=== PATIENT | female | born 1985 | race Caucasian/White ===

== ENCOUNTER 2023-12-30 19:59 | Emergency (ER) | payer BC, SELFPAY ==
[2023-12-30 20:10] VITALS: BP 94/64
[2023-12-30] MEDS: NSS 1000 IV (23:09)
[2023-12-30] MEDS: TORADOL 15 MG IV (23:15)
[2023-12-30 23:17] LABS: % Basophils 0.2 % (0-2); % Eosinophils 0.3 % (0-6); % Immature Granulocytes 0.7 % (0-0.5); % Lymphocytes 11.2 % (20.5-51.1); % Monocytes 8.5 % (1.7-9.3); % Neutrophils 79.1 % (42.2-75.2); Absolute Immature Granulocytes 0.1 10^3/uL (0-0.05); Absolute Lymphocytes 1.1 10^3/uL (1.2-3.4); Absolute Monocytes 0.9 10^3/uL (0.1-0.6); Hematocrit 32.9 % (37.0-47.0); Hemoglobin 11.7 g/dL (12.0-16.0); Mean Corp Hgb Conc. 35.6 g/dL (33.0-37.0); Mean Corpuscular Hgb 28.2 pg (27.0-31.0); Mean Corpuscular Volume 79.3 fL (81.0-99.0); Mean Platelet Volume 10.6 fL (7.4-10.4); Nucleated Red Blood Cells % 0 %; Platelet Count 230 10^3/uL (130-400); Red Blood Cell Count 4.15 10^6/uL (4.20-5.40); Red Cell Dist. Width 13.4 % (11.5-14.5); White Blood Cell Count 10.1 10^3/uL (4.8-10.8)
[2023-12-30 23:35] VITALS: BMI 25.5
[2023-12-30 23:39] LABS: Blood Urea Nitrogen 19 mg/dl (7-17); Carbon Dioxide 24 mmol/L (22-30); Chloride 104 mmol/L (98-107); Estimated Creatinine Clearance 49 ml/min; Glucose 93 mg/dl (70-99); Potassium 3.7 mmol/L (3.5-5.1); Sodium 134 mmol/L (135-145); eGFR 54.65
--- NOTE | 2023-12-31 00:10 | ED.GENMED ---
History of Present Illness
General
Chief Complaint: Skin Problem
Source: patient
Exam Limitations: none
Time Seen by Provider: 12/30/23 22:25
Nursing documentation reviewed up to this point in time: agreed with
Travel History
Have you had any contact with someone who has COVID-19?: No
Do you have any symptoms of coronavirus? Fever > 100 degrees, chills, cough, shortness of breath, sore throat, loss of taste or smell, muscle aches, or headache?: Yes
Symptoms:: chills
History of Present Illness
History of Present Illness:
Patient evaluated at urgent care center yesterday and was started on Bactrim and Keflex, secondary to concern for potential cellulitis in her left armpit, presents to ED secondary to worsening redness and pain, despite taking antibiotics, along with
decreased appetite. Denies nausea or vomiting. Denies trauma. Denies headache. Patient reports feeling feverish yesterday, which now has resolved. Patient has had history of previous skin infection.
Past History
Past History
ED Past Medical History: Hypothyroidism
ED Past Surgical History: Appendectomy
Social History
Tobacco: Smoker
Personal: Single
Living: with family
Employment: Employed
Review of Systems
Review of Systems
Allergies reviewed?: Yes
All Other Systems: ROS reviewed and negative except as documented in HPI and ROS
Constitutional: Reports no symptoms; Denies chills
ABD/GI: Reports no symptoms
Musculoskeletal: Reports no symptoms
Skin: Reports other (Skin redness)
Neurological: Reports no symptoms
Phy Exam
Physical Exam
Physical Exam:
Physical Exam
General: mild distress, not acutely ill. afebrile
Head: nc/at. eomi
Neck: supple. no meningeal signs.
Abdomen: normal bowel sounds. not tender.
Neuro: alert and oriented. no focal neurological deficits
Skin: left axilla - an area of erythema approx 2 cm in diameter noted over left axilla, without open drainage/swelling.
Psychiatric: well kept. interactive and cooperative
Extremities: no edema. no calf tenderness.
Course
Orders/Labs/Results
Orders:
Orders
12/30/23 22:55
Ketorolac [Toradol] 15 mg IV NOW STA
12/30/23 22:56
0.9% Sodium Chloride 1000 ml [Nss] 1,000 ml IV BOLUS
12/30/23 23:09
Basic Metabolic Panel Urgent
Complete Blood Count/With Diff Urgent
Blood Culture Urgent
SATHISH Source: Blood/Venous
Specimen Description:
Abnormal Lab Results
12/30/23
23:09
RBC 4.15 L 10^6/uL
(4.20-5.40)
Hgb 11.7 L g/dL
(12.0-16.0)
Hct 32.9 L %
(37.0-47.0)
MCV 79.3 L fL
(81.0-99.0)
MPV 10.6 H fL
(7.4-10.4)
Abs Immat Gran (auto) 0.1 H 10^3/uL
(0-0.05)
Absolute Neuts (auto) 8.0 H 10^3/uL
(1.4-6.5)
Absolute Lymphs (auto) 1.1 L 10^3/uL
(1.2-3.4)
Absolute Monos (auto) 0.9 H 10^3/uL
(0.1-0.6)
Immature Gran % 0.7 H %
(0-0.5)
Neutrophils % 79.1 H %
(42.2-75.2)
Lymphocytes % 11.2 L %
(20.5-51.1)
Sodium 134 L mmol/L
(135-145)
BUN 19 H mg/dl
(7-17)
Creatinine 1.3 H mg/dL
(0.6-1.0)
12/30/23 23:09
12/30/23 23:09
Vital Signs
Initial and Last Documented VS:
Initial Vital Signs
Temp Pulse Resp BP Pulse Ox
98.4 F 95 17 94/64 98
12/30/23 20:10 12/30/23 20:10 12/30/23 20:10 12/30/23 20:10 12/30/23 20:10
Last Documented Vital Signs
Temp Pulse Resp BP Pulse Ox
98.4 F 84 15 101/62 98
12/30/23 20:10 12/31/23 00:36 12/31/23 00:36 12/31/23 00:36 12/31/23 00:36
MDM/Problems Addressed
MDM/Problems Addressed:
History and exam consistent with folliculitis with development of cellulitis. No evidence of abscess, therefore no indication for incision and drainage at this time. In addition, as antibiotics was only started 24 hours ago, difficult to determine
that patient is failing on antibiotics. Patient is afebrile with a normal blood work. As such, patient will be advised to continue already prescribed antibiotics along with PCP follow-up. Advised to return to ED with worsening symptoms. Pt
expressed understanding at time of discharge.
Mildly elevated creatinine discussed with patient, which is likely prerenal. Advised repeat blood work as outpatient after resolution of current infection
Blood cx pending
*Critical Care Note
Total Time (30-74mins, 75-104mins- exclusive of procedures): Not Applicable
ED Attending Note
-
Portions of this chart may have been created with voice recognition software.� Occasional wrong word or��sound alike� substitutions may have occurred due to the inherent limitations of voice recognition software.
Discharge Plan
Departure
Patient Disposition: Home (Routine Discharge)
Date of Disposition: 12/31/23
Time of Disposition: 00:10
Patient with high blood pressure during this ER visit?: Yes
Condition: Good
Discharge Problem:
Cellulitis
Instructions: Cellulitis (Skin Infection), Adult (DC)
Prescriptions:
No Action
levothyroxine 175 MCG tablet
175 mcg PO DAILY
medroxyprogesterone 150 MG/ML suspension
150 mg IM Q3M
Referrals:
NONE,* [Family Provider] -
Activity Restrictions/Additional Instructions:
As discussed, please follow-up with your primary care physician for reevaluation in 1 to 2 days. Until then, please continue to take already prescribed antibiotics.
Interventions
Interventions:
*Risk Screen - Suicide Last Done: 12/30/23 20:10
*General Assessment Last Done: 12/30/23 20:10
*Neglect/Abuse Screening Last Done: 12/30/23 20:10
ED- Fall Risk Assessment Last Done: 12/30/23 23:35
*ED COVID-19 Vaccine History Last Done: 12/30/23 20:10
*Nursing Disposition Last Done: 12/31/23 00:35
ED-Skin Assessment Last Done: 12/30/23 23:35
Discharge Date and Time
Discharge Date/Time: 12/31/23 00:36
Print Language: SRI LANKAN
[2023-12-31 00:36] VITALS: BP 101/62
== END 2023-12-31 00:36 | disposition home or self-care (01) ==
LOC: EMR 19:59
PROVIDERS: EMERGENCY PHYSICIAN Emergency Medicine
DX: L03.114 Cellulitis of left upper limb (principal); F17.200 Nicotine dependence, unspecified, uncomplicated; R03.0 Elevated blood-pressure reading, without diagnosis of hypertension
CPT/HCPCS: 99284; 96374; 96361; 80048; 85025; 87040

== ENCOUNTER 2025-02-10 10:43 | Emergency (ER) | payer OTHER, SELFPAY ==
[2025-02-10 11:02] VITALS: BP 119/77
[2025-02-10 11:35] LABS: % Basophils 0.8 % (0-2); % Eosinophils 4.2 % (0-6); % Lymphocytes 23.8 % (20.5-51.1); % Monocytes 7.8 % (1.7-9.3); % Neutrophils 63.4 % (42.2-75.2); Absolute Eosinophils 0.2 10^3/uL (0-0.7); Absolute Lymphocytes 0.9 10^3/uL (1.2-3.4); Absolute Monocytes 0.3 10^3/uL (0.1-0.6); Absolute Neutrophils 2.3 10^3/uL (1.4-6.5); Hematocrit 35.9 % (37.0-47.0); Hemoglobin 12.2 g/dL (12.0-16.0); Mean Corpuscular Hgb 28.4 pg (27.0-31.0); Mean Corpuscular Volume 83.7 fL (81.0-99.0); Mean Platelet Volume 9.7 fL (7.4-10.4); Nucleated Red Blood Cells % 0 %; Platelet Count 263 10^3/uL (130-400); Red Blood Cell Count 4.29 10^6/uL (4.20-5.40); Red Cell Dist. Width 14.1 % (11.5-14.5); White Blood Cell Count 3.6 10^3/uL (4.8-10.8)
[2025-02-10 11:40] LABS: HCG, Serum Qualitative Screen Negative
[2025-02-10 11:45] LABS: ALT (SGPT) 18 U/L (0-35); AST (SGOT) 23 U/L (14-36); Albumin 3.8 g/dl (3.5-5.0); Alkaline Phosphatase 57 U/L (38-126); Blood Urea Nitrogen 15 mg/dl (7-17); Calcium 9.1 mg/dl (8.4-10.2); Carbon Dioxide 30 mmol/L (22-30); Chloride 109 mmol/L (98-107); Glucose 91 mg/dl (70-99); Potassium 3.9 mmol/L (3.5-5.1); Sodium 142 mmol/L (135-145); Total Bilirubin 0.4 mg/dl (0.2-1.3); Total Protein 6.4 g/dl (6.3-8.2); eGFR > 60.00
[2025-02-10 11:52] VITALS: BP 115/87
[2025-02-10 11:53] VITALS: BMI 26.1
[2025-02-10 12:00] VITALS: BP 110/72
[2025-02-10 13:00] VITALS: BP 101/81
--- NOTE | 2025-02-10 13:05 | ED.GENMED ---
History of Present Illness
<Tano Harry PA-C - Last Filed: 02/10/25 14:48>
General
Chief Complaint: Fatigue
Time Seen by Provider: 02/10/25 12:46
History of Present Illness
History of Present Illness:
Patient is a 39-year-old female with past medical history of reported rheumatoid arthritis and history of prior Lyme disease, hypothyroidism, here today for evaluation of joint pain that has been occurring intermittently over the past couple of
weeks to months. She reports pain throughout all of her joints including worsening symptoms in her hands, wrists, knees, and ankles. Pain is noted to be symmetric. She also endorses extreme fatigue. No rashes. No fevers. No vomiting. The
patient states she was previously diagnosed with rheumatoid arthritis in 2011 but does not currently follow with a photographic colorist. She also states she has been having intermittent episodes of what she describes as seizure-like activity where she
has periods of blank stares that come and go. This has been occurring since June. She has not been evaluated by neurology recently. The patient denies drug use. She does report alcohol use. She has been taking her medication as directed.
She is taking meloxicam for pain. She does report yesterday the police were contacted as she was found to be lying down on the ground at her daughter's school and other individuals were concerned about her. She reports that she was in a lot of
pain and that is why she was doing so. She also states child protective services were contacted which has been making things more upsetting for her.
Past History
<Tano Harry PA-C - Last Filed: 02/10/25 14:48>
Past History
ED Past Medical History: Hypothyroidism
ED Past Surgical History: Appendectomy
Social History
Tobacco: Smoker
Personal: Single
Living: with family
Employment: Employed
Review of Systems
<Tano Harry PA-C - Last Filed: 02/10/25 14:48>
Review of Systems
All Other Systems: ROS reviewed and negative except as documented in HPI and ROS
Phy Exam
<Tano Harry PA-C - Last Filed: 02/10/25 14:48>
Physical Exam
Physical Exam:
GENERAL: Alert , in no apparent distress
EYE: pupils equal and reactive
NECK: Supple, no significant adenopathy.
ENT: o/p clr, mmm.
CARDIAC: Regular rate and rhythm .
LUNGS: Clear breath sounds bilaterally, no acute respiratory distress, no wheezes/rales/rhonchi
ABDOMEN: Soft, without focal tenderness, no r/g, no cvat
NEUROLOGICAL: Alert and oriented, no focal neuro deficits, cranial nerves II through XII intact, moving all extremities, normal sensation and motor
SKIN: Warm and dry, skin intact.
MUSCULOSKELETAL: No edema, well perfused.
PSYCH: Normal and appropriate interaction.
Course
<Tano Harry PA-C - Last Filed: 02/10/25 14:48>
Orders/Labs/Results
Orders:
Orders
02/10/25 11:08
ECG [Electrocardiogram (*1)] Urgent
Reason for Study: Fatigue / Weakness
EKG- Treatment ONCE
Test Result ONCE
02/10/25 11:17
Complete Blood Count/With Diff Urgent
Comprehensive Metabolic Panel Urgent
HCG, Serum Qualitative Screen Urgent
Lyme Progressive Urgent
Comment: ADDON
02/10/25 13:02
CT Head W/o Iv Contrast Urgent
Comment:
Reason For Exam: fatigue, worsening, reported seizures
02/10/25 13:03
Ibuprofen [Motrin] 600 mg PO NOW STA
02/10/25 16:46
Add On- LAB Urgent
Tests Added?: lyme progressive
Abnormal Lab Results
02/10/25
11:17
WBC 3.6 L 10^3/uL
(4.8-10.8)
Hct 35.9 L %
(37.0-47.0)
Absolute Lymphs (auto) 0.9 L 10^3/uL
(1.2-3.4)
Chloride 109 H mmol/L
(98-107)
02/10/25 11:17
02/10/25 11:17
Vital Signs
Initial and Last Documented VS:
Initial Vital Signs
Temp Pulse Resp BP Pulse Ox
97.9 F 69 22 119/77 100
02/10/25 11:02 02/10/25 11:02 02/10/25 11:02 02/10/25 11:02 02/10/25 11:02
Last Documented Vital Signs
Temp Pulse Resp BP Pulse Ox
97.7 F 66 24 120/76 100
02/10/25 11:54 02/10/25 16:52 02/10/25 16:46 02/10/25 16:49 02/10/25 16:52
<Fran Evans PA-C - Last Filed: 02/10/25 18:19>
Orders/Labs/Results
Orders:
Orders
02/10/25 11:08
ECG [Electrocardiogram (*1)] Urgent
Reason for Study: Fatigue / Weakness
EKG- Treatment ONCE
Test Result ONCE
02/10/25 11:17
Complete Blood Count/With Diff Urgent
Comprehensive Metabolic Panel Urgent
HCG, Serum Qualitative Screen Urgent
Lyme Progressive Urgent
Comment: ADDON
02/10/25 13:02
CT Head W/o Iv Contrast Urgent
Comment:
Reason For Exam: fatigue, worsening, reported seizures
02/10/25 13:03
Ibuprofen [Motrin] 600 mg PO NOW STA
02/10/25 16:46
Add On- LAB Urgent
Tests Added?: lyme progressive
Abnormal Lab Results
02/10/25
11:17
WBC 3.6 L 10^3/uL
(4.8-10.8)
Hct 35.9 L %
(37.0-47.0)
Absolute Lymphs (auto) 0.9 L 10^3/uL
(1.2-3.4)
Chloride 109 H mmol/L
(98-107)
02/10/25 11:17
02/10/25 11:17
Vital Signs
Initial and Last Documented VS:
Initial Vital Signs
Temp Pulse Resp BP Pulse Ox
97.9 F 69 22 119/77 100
02/10/25 11:02 02/10/25 11:02 02/10/25 11:02 02/10/25 11:02 02/10/25 11:02
Last Documented Vital Signs
Temp Pulse Resp BP Pulse Ox
97.7 F 66 24 120/76 100
02/10/25 11:54 02/10/25 16:52 02/10/25 16:46 02/10/25 16:49 02/10/25 16:52
<Tano Harry PA-C - Last Filed: 02/10/25 14:48>
MDM/Problems Addressed
Differential Diagnosis Includes:
Patient is a 39-year-old female with past medical history of reported rheumatoid arthritis and history of prior Lyme disease, hypothyroidism, here today for evaluation of joint pain and fatigue. Overall, patient appears very well. Vital signs
grossly within normal limits. Physical examination unremarkable. The patient is neurologically intact without acute focal deficits appreciated. I am not able to appreciate any overlying skin changes, swelling, or deformities along her joints.
She has intact strength and sensation. She has no infectious findings identified at this time. The patient states she is very concerned for a brain tumor given the above symptoms. I discussed with her that at this time her symptoms are not
suggestive of this and her neurological testing is completely within normal limits. We discussed neurology follow-up. The patient is requesting advanced imaging of her brain. Risks/benefits discussed. Shared decision-making was used. Will
order. Will also initiate basic screening labs. I had a longstanding discussion with the patient regarding her symptoms. We discussed the possibility of an autoimmune condition and the patient will require further testing and evaluation. We
discussed neurology as well as rheumatology follow-up. Patient voices understanding. For the time being we will provide ibuprofen for pain. Will monitor and reassess.
02/10/2025 14:48: Care signed out to Fran LIRA.
<Fran Evans PA-C - Last Filed: 02/10/25 18:19>
*Radiology
Radiology exam reviewed: radiology read reviewed
*Critical Care Note
Total Time (30-74mins, 75-104mins- exclusive of procedures): Not Applicable
<Fran Evans PA-C - Last Filed: 02/10/25 18:19>
Patient Management
Escalation/DeEscalation of care consider admission/obs:
Patient received in signout pending CT scan results. CT of the head is negative for any acute intracranial pathology. I discussed patient's results with her. Given her reported symptoms combined with her slight leukopenia I will add on a Lyme
test as well as attempt a steroid taper given her polyarthralgia. Recommended close follow-up with primary care provider. Aware of return precautions to the ER.
ED Attending Note
<Tano Harry PA-C - Last Filed: 02/10/25 14:48>
-
Portions of this chart may have been created with voice recognition software.� Occasional wrong word or��sound alike� substitutions may have occurred due to the inherent limitations of voice recognition software.
Discharge Plan
Departure
Patient Disposition: Home (Routine Discharge)
Date of Disposition: 02/10/25
Time of Disposition: 16:46
Patient with high blood pressure during this ER visit?: No
Condition: Fair
Covid-19: Not Applicable
Discharge Problem:
Polyarthralgia, Fatigue
Instructions: Fatigue (DC), Muscle, joint, and bone pain - Discharge instructions
Prescriptions:
New
prednisone 10 mg Tablet
See Rx Instructions .ROUTE .COMPLEX Qty: 30 0RF
Rx Instructions:
Take By Mouth:
40 mg daily x3 days, 30 mg daily x3 days,
20 mg daily x3 days, 10 mg daily x3 days.
No Action
levothyroxine 175 MCG tablet
175 mcg PO DAILY
medroxyprogesterone 150 MG/ML suspension
150 mg IM Q3M
Referrals:
Katt Pickard MD [Active, Rheumatology] - Follow up in 1 week
Usama Teran MD [Active, Neurology] - Follow up in 1 week
UNKNOWN - PT DOES,NOT KNOW [Family Provider]
Activity Restrictions/Additional Instructions:
You were seen today for evaluation of joint pain and fatigue.
Your workup reveals a decreased WBC count of 3.6 thousand which is nonspecific. The remainder of your workup is largely unremarkable.
We discussed following up with both rheumatology and neurology for further testing and evaluation. We also discussed following up with a primary care provider and establishing care.
Return to the emergency department for any new, worsening, or concerning symptoms.
Interventions
Interventions:
*Risk Screen - Suicide Last Done: 02/10/25 11:02
*General Assessment Last Done: 02/10/25 11:02
*Neglect/Abuse Screening Last Done: 02/10/25 11:02
*ED- Fall Risk Assessment Last Done: 02/10/25 11:55
*ED COVID-19 Vaccine History Last Done: 02/10/25 11:55
*Nursing Disposition Last Done: 02/10/25 16:52
Discharge Date and Time
Discharge Date/Time: 02/10/25 16:52
Print Language: CITIZEN [place]
[2025-02-10] MEDS: MOTRIN 600 MG PO (13:15)
[2025-02-10 14:00] VITALS: BP 108/80
[2025-02-10 16:49] VITALS: BP 120/76
[2025-02-12 13:57] LABS: Lyme Antibody Screen, EIA Negative (Negative)
== END 2025-02-10 16:52 | disposition home or self-care (01) ==
LOC: EMR 10:43
PROVIDERS: EMERGENCY PHYSICIAN Emergency Medicine
DX: M25.59 Pain in other specified joint (principal); R53.83 Other fatigue; R53.1 Weakness; M06.9 Rheumatoid arthritis, unspecified; E03.9 Hypothyroidism, unspecified; F17.200 Nicotine dependence, unspecified, uncomplicated; Z87.898 Personal history of other specified conditions
CPT/HCPCS: 99284; 70450; 80053; 84703; 85025; 86618; 93005